=== PATIENT | male | born 1955 | race Caucasian/White ===

== ENCOUNTER 2020-05-19 17:23 | Observation (INO) ==
[2020-05-19 20:12] LABS: Albumin 4.2 G/DL (3.4-5.0); Bilirubin,Total 0.7 MG/DL (0.2-1.0); Calcium 8.8 MG/DL (8.5-10.1); Total Protein 6.8 G/DL (6.4-8.3)
[2020-05-19 20:21] LABS: Basophils % 0.3 % (0.0-0.8); Eosinophils # 0.4 10*3/uL (0.0-0.87); Eosinophils % 3.8 % (0.00-10.9); Hematocrit 48.2 VOL% (42.0-52.0); Hemoglobin 16.5 GM/DL (14.0-18.0); Immature Granulocytes % 0.4 %; Immature Granulocytes Absolute 0.04 #; Lymphocytes # 3.2 10*3/uL (1.4-4.0); Lymphocytes % 30.9 % (21.2-54.2); Mean Corpuscular HGB Conc 34.2 GM/DL (32-36); Mean Corpuscular Volume 86.8 FL (87-102); Mean Platelet Volume 11.5 FL (9.6-12.0); Monocytes % 13.1 % (1.7-12.7); Neutrophils % 51.5 % (38.7-73.9); Platelet Count 172 T/CUMM (130-400); Red Blood Count 5.55 MC/CUMM (3.8-5.5); White Blood Count 10.2 T/CUMM (4-12)
[2020-05-19] MEDS ORDERED: SODIUM CHLORIDE 0.9% 1,000 ML IV STA (21:06)
[2020-05-19] MEDS ORDERED: MORPHINE 4 MG/1 ML VIAL IV PRN (23:27)
[2020-05-19] MEDS ORDERED: oxyCODONE/ACETAMINOPHEN 5-325 MG TABLET PO PRN (23:59)
[2020-05-19] MEDS ORDERED: BACLOFEN 10 MG TABLET PO PRN (23:59)
[2020-05-20] MEDS ORDERED: hydrALAZINE 20 MG/1 ML VIAL IV PRN (00:01)
[2020-05-20] MEDS ORDERED: DEXTROSE 50% 25 GM/50 ML VIAL IV PRN (00:01)
[2020-05-20] MEDS ORDERED: ONDANSETRON 4 MG/2 ML VIAL IV PRN (00:01)
[2020-05-20] MEDS ORDERED: GLUCAGON 1 MG VIAL IM PRN (00:01)
[2020-05-20] MEDS ORDERED: ALUMINUM/MAGNES/SIMETH MAX STR 30 ML UDCUP PO PRN (00:01)
[2020-05-20 03:27] LABS: Basophils % 0.4 % (0.0-0.8); Eosinophils # 0.4 10*3/uL (0.0-0.87); Eosinophils % 4.7 % (0.00-10.9); Hematocrit 49.2 VOL% (42.0-52.0); Hemoglobin 15.9 GM/DL (14.0-18.0); Immature Granulocytes % 0.2 %; Immature Granulocytes Absolute 0.02 #; Lymphocytes % 35.9 % (21.2-54.2); Mean Corpuscular HGB Conc 32.3 GM/DL (32-36); Mean Corpuscular Volume 89.9 FL (87-102); Mean Platelet Volume 10.6 FL (9.6-12.0); Monocytes % 11.6 % (1.7-12.7); Neutrophils % 47.2 % (38.7-73.9); Platelet Count 162 T/CUMM (130-400); Red Blood Count 5.47 MC/CUMM (3.8-5.5); Red Cell Distribution Width 15.2 % (9.3-17.3); White Blood Count 8.4 T/CUMM (4-12)
[2020-05-20 03:46] LABS: Calcium 8.6 MG/DL (8.5-10.1)
[2020-05-20] MEDS: ALBUTEROL/IPRATROPIUM 3 ML NEB RESP TX SCH ×3 (06:27→08:45)
[2020-05-20] MEDS ORDERED: PANTOPRAZOLE 40 MG TABLET PO SCH (09:00)
[2020-05-20] MEDS ORDERED: allopurinoL 300 MG TABLET PO SCH (09:00)
[2020-05-20] MEDS ORDERED: SPIRONOLACTONE 25 MG TABLET PO SCH (09:00)
[2020-05-20] MEDS ORDERED: ASCORBIC ACID 500 MG TABLET PO SCH (09:00)
[2020-05-20] MEDS ORDERED: DABIGATRAN 150 MG CAPSULE PO SCH (09:00)
[2020-05-20] MEDS ORDERED: DIGOXIN 0.125 MG TABLET PO SCH (09:00)
[2020-05-20 15:49] VITALS: BP 116/72
[2020-05-20] MEDS ORDERED: SIMVASTATIN 10 MG TABLET PO SCH (21:00)
== END 2020-05-20 15:30 | disposition home or self-care (01) ==
LOC: N.EDINP 17:23 → N.ED 17:23 → N.EDINP 05-20 14:20 → N.TELES 05-20 15:14
PROVIDERS: ADMIT Internal Medicine; ATTEND Internal Medicine